=== PATIENT | male | born 1980 | race Caucasian/White ===

== ENCOUNTER 2024-11-18 14:35 | Emergency (ER) | payer BC, MEDICAID, SELFPAY ==
[2024-11-18 14:53] VITALS: BP 143/80; PULSE 73; RESP 17; TEMP 37.1; O2SAT 96; BMI 31.8
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
--- NOTE | 2024-11-18 16:07 | XR_ITS ---
Examination: CT brain head without contrast. 2-D sagittal coronal reconstructions Date and time of exam:November 18, 2024 at 1635 hours INDICATIONS: Injured today, head pain CTDI: vol (mGy):57.4 DLP: (mGycm):1181 Technique: Multiple CT axial sections of the brain have been obtained, 5 mm slice thickness. Contrast has not been administered. 2-D sagittal, coronal reconstructions have been obtained Low dose protocols were performed. One or more of the following dose reduction techniques were used; automated exposure control, adjustment of the mA and/or KV according to patient size, use of iterative reconstruction technique. Findings: No significant ventricular enlargement. Intra-axial or extra-axial hemorrhage density is not seen. No mass effect or midline shift Basal cisterns are not remarkable. Fourth ventricle is midline. Cranial vault intact. Impression: Negative for acute hemorrhage, mass effect or midline shift
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
--- NOTE | 2024-11-18 16:07 | XR_ITS ---
Examination: Thoracic spine 2 views TECHNIQUE: AP lateral thoracic spine 2 views Date and time: November 18, 2024, 1625 hours. INDICATIONS: Patient fell today with injury to the back, mid back pain. FINDINGS: No acute thoracic fracture Intact pedicles. IMPRESSION: No acute thoracic fracture. Consider follow-up as clinically warranted
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
[2024-11-18] MEDS: MORPHINE SULF INJ 10 MG/ML VIAL 5 MG IM (19:38)
[2024-11-18] MEDS: ONDANSETRON ODT 4 MG TABRAP PO (19:38)
[2024-11-18 19:53] VITALS: BP 134/79; PULSE 82; RESP 18; TEMP 37.1; O2SAT 94
== END 2024-11-18 19:55 | disposition home or self-care (01) ==
PROVIDERS: Emergency Provider Emergency Medicine; PCP Family Medicine
DX: S09.90XA Unspecified injury of head, initial encounter (principal); S29.012A Strain of muscle and tendon of back wall of thorax, initial encounter; S22.41XA Multiple fractures of ribs, right side, initial encounter for closed fracture; X58.XXXA Exposure to other specified factors, initial encounter; Y93.19 Activity, other involving water and watercraft
CPT/HCPCS: 70450; 71100; 72070; 96372; 99283; J2270; Q0162